=== PATIENT | female | born 1970 | race Caucasian/White ===

== ENCOUNTER 2016-07-14 07:59 | Outpatient (CLI) | payer OTHER ==
--- NOTE | 2016-07-15 13:17 | DIAGNOSTIC IMAGING REPORT ---
PROCEDURE: MG BILATERAL SCREENING W/CAD INDICATION: SCREENING TECHNIQUE: Bilateral CC and MLO digital views. COMPARISON: Mammograms 06/27/2015, 07/03/2014 and 06/29/2013. FINDINGS: Computer-aided detection applied. Progression of mildly dense breast parenchymal pattern. Focal asymmetry in the left breast posteromedially seen only on the CC view. No pleomorphic microcalcifications. IMPRESSION: 1. Left breast focal asymmetry posteromedially. Recommend lateral and spot compression views with possible ultrasound if necessary. RESULT CODE: 0- Incomplete; needs additional evaluation. A. A negative report should not delay biopsy if a dominant or clinically suspicious mass is present. 10-15% of cancers are not identified by x-ray. B. A negative report may reinforce clinical impression. C. Adenosis and dense breasts may obscure an underlying neoplasm. D. False positive reports average 6-10%. E.. A yearly screening mammogram is recommended. A reminder letter will be scheduled.
[2016-07-19] MEDS ORDERED: ZYRTEC ALLERGY10 MG PO (11:38)
[2016-07-19] MEDS ORDERED: FISH OIL1000 M1 PO (11:38)
[2016-07-19] MEDS ORDERED: MULTIPLE VITAMIN PO (11:39)
[2016-07-19] MEDS ORDERED: METFORMIN HCL500 MG PO (11:39)
== END 2016-07-14 23:00 ==
LOC: MAM SRH 07:59
DX: Z12.31 Encounter for screening mammogram for malignant neoplasm of breast (principal); R92.8 Other abnormal and inconclusive findings on diagnostic imaging of breast

== ENCOUNTER 2016-07-22 10:55 | Day surgery (SDC) | payer OTHER ==
[~2016-07-22] VITALS: Ht 165.1 cm; Wt 82.9 kg
[2016-07-22] VITALS (9 sets, daily range): BP systolic 100–116; BP diastolic 58–72
[~2016-07-22 10:55] MED LIST: FISH OIL1000 M1 PO; METFORMIN HCL500 MG PO; MULTIPLE VITAMIN PO; ZYRTEC ALLERGY10 MG PO
--- NOTE | 2016-07-22 11:41 | NUR ---
PREOP INSTRUCTIONS GIVEN TO PATIENT. QUESTIONS ANSWERED. PATIENT VERBALIZES UNDERSTANDING. CONSENT CONFIRMED. NO PREOP MEDICATIONS GIVEN. EXTREMITY MARKED BY PATIENT. PATIENT RESTING COMFORTABLY. MOM IN THE ROOM. EARL
--- NOTE | 2016-07-22 16:27 | NUR ---
PATIENT ARRIVED TO PACU AT 1622. SPONT RESP. AWAKE AND CONVERSING WITH STAFF. VITALS STABLE. R LEG WITH PRIYANKA WRAP FROM GROIN TO TOES- CLEAN, DRY AND INTACT. DENIES PAIN AND NAUSEA AT THIS TIME. PATIENT ABLE TO MOVE KNEES AND HIPS. WILL CONTINUE TO MONITOR.
[2016-07-22] MEDS ORDERED: NORCO1 TA1 PO (16:42)
--- NOTE | 2016-07-22 16:43 | Provider's Discharge Care Plan ---
Problem, Goal, Plan Problem List 1. Status post phlebectomy
--- NOTE | 2016-07-22 16:43 | Provider's Discharge Care Plan ---
Problem, Goal, Plan Problem List 1. Status post phlebectomy
--- NOTE | 2016-07-22 17:03 | NUR ---
PATIENT'S VITALS STABLE. NO BLEEING NOTED AROUND DRESSINGS. DENIES PAIN AND NAUSEA. ABLE TO MOVE HIPS AND KNEES. WILL CONTINUE TO MONITOR.
--- NOTE | 2016-07-22 17:17 | NUR ---
REPORT RECIEVED FROM [facility] AT EMD OF SHIFT-- WILL TRANSPORT WHEN ANESTHESIA DISCHARGES TO NEXT LEVEL OF CARE. PT STABLE, MOVING LEGS, NO PAIN COMPLAINTS.
--- NOTE | 2016-07-22 17:35 | NUR ---
RECEIVED PATIENT FROM PACU, REPORT RECEIVED. PATIENT PLACED ON DINAMAP FOR POST OP VS, CMS IN RLE INTACT.
--- NOTE | 2016-07-22 17:55 | NUR ---
CMS INTACT IN RLE, DRESSING DRY AND INTACT. PATIENT MEDICATED FOR PAIN WITH MORPHINE 1 MG IV.
--- NOTE | 2016-07-22 19:18 | OPERATIVE REPORT ---
DATE OF SURGERY: 07/22/2016 SURGEON: Wero Olmos MD PREOPERATIVE DIAGNOSIS: 1. Varicose veins of right lower extremity POSTOPERATIVE DIAGNOSIS: 1. Varicose veins of right lower extremity PROCEDURE PERFORMED: 1. Avulsion phlebectomy of right leg (14 punctures) ANESTHESIA: Spinal. INDICATIONS: The patient is a 45-year-old woman with symptomatic varicose veins of the right knee. SURGICAL TECHNIQUE: The patient was taken to the operating room, where a spinal anesthetic was administered and patient prepped and draped in usual sterile fashion. She underwent preoperative vein marking in the standing position with indelible markers. The patient was placed in supine position with the leg elevated. A local anesthetic of 0.5% Marcaine with epinephrine was infiltrated over the vein. Multiple punctures were made, starting distally and working proximally using an 11-blade. Avulsion of the underlying vein was performed in sequence. Near the knee, there was a more diffuse cluster of veins and this required a slightly larger incision. Once this operation was over a single 4-0 Vicryl subcuticular suture was placed there. Once the avulsion was completed up into the medial thigh, pressure was held using a sterile Paul bandage following along with the operation. This was then unwound and hemostasis was complete. Mastisol and Steri-Strips were placed at all sites and the elastic compression dressing overlying a sterile Kerlix wrap was placed and the patient was taken from the operating room with the leg elevated in supine position and with no signs of bleeding.
--- NOTE | 2016-07-22 20:00 | NUR ---
CMS INTACT IN RLE, ABLE TO MOVE LEGS BLE, REPORTS SOME NUMBNESS STILL IN COCCYX.
--- NOTE | 2016-07-22 21:15 | NUR ---
CMS INTACT TO RLE, DRESSING DRY AND INTACT, NO DRAINAGE NOTED. MEDICATED FOR PAIN WITH MORPHINE 2 MG IV WITH RELIEF.
--- NOTE | 2016-07-22 22:20 | NUR ---
CMS IN RLE INTACT, PATIENT'S DRESSING DRY AND INTACT. ABLE TO AMBULATE UP TO BATHROOM WITH NO DRAINAGE ON DRESSING, PATIENT TOLERATED WELL WITH NO DIZZINESS. VOIDED 450 ML OF URINE, PAIN WELL CONTROLLED ON IV MORPHINE. IV D/C'D, CATHETER INTACT. PATIENT GIVEN D/C INSTRUCTIONS AND RX, SHE VERBALIZES UNDERSTANDING OF INSTRUCTIONS AND WILL CALL MD WITH ANY QUESTIONS OR CONCERNS. PATIENT WHEELED OUT TO D/C VIA W/C WITH HER SIGNIFICANT OTHER.
== END 2016-07-22 22:20 | disposition home or self-care (01) ==
LOC: SDC SRH 10:55 → SCU SRH 10:56 → SDC SRH 12:00 → OR SRH 12:00 → OB SRH 21:04 → SDC SRH 22:20
PROVIDERS: Surgery
PROC: 06DP3ZZ Extraction of Right Saphenous Vein, Percutaneous Approach (ICD-10-PCS; principal; 2016-07-22 12:30)
DX: I83.891 Varicose veins of right lower extremity with other complications (principal); I83.811 Varicose veins of right lower extremity with pain

== ENCOUNTER 2016-07-26 12:54 | Outpatient (CLI) | payer OTHER ==
[~2016-07-26 12:54] MED LIST changes: +NORCO1 TA1 PO
--- NOTE | 2016-07-26 14:40 | DIAGNOSTIC IMAGING REPORT ---
PROCEDURE: MG UNILATERAL DIAG-LT W/CAD INDICATION: EVALUATE ASYMMETRY SEEN ON SCREENING TECHNIQUE: Spot compression mammographic views of the left breast in the CC and direct lateral projection. A full direct lateral left breast mammogram using CAD. The patient then went to ultrasound where cummings-scale and color Doppler sonographic imaging of the left breast was performed. COMPARISON: 07/14/2016, 06/27/2015, 07/03/2014 FINDINGS: Mammograms: There is a persistent triangular density in the medial left breast on the CC view which is different in appearance compared to the screening mammogram. It has an appearance of fibroglandular tissue. There is no corresponding abnormality on the direct lateral mammogram. Ultrasound: Normal tissue in the superior medial aspect of the left breast. No suspicious density or shadowing. An incidental 5 mm simple cyst in the 3 o'clock position adjacent to the nipple is noted. IMPRESSION: 1. Normal appearing fibroglandular tissue by mammogram and ultrasound. 2. 5 mm simple cyst of the position incidentally noted. 3. The patient can return to yearly screening mammography. Findings and recommendations were discussed with the patient. RESULT CODE: 1- Negative. A. A negative report should not delay biopsy if a dominant or clinically suspicious mass is present. 10-15% of cancers are not identified by x-ray. B. A negative report may reinforce clinical impression. C. Adenosis and dense breasts may obscure an underlying neoplasm. D. False positive reports average 6-10%. E.. A yearly screening mammogram is recommended. A reminder letter will be scheduled.
== END 2016-07-26 23:00 ==
LOC: MAM SRH 12:54
DX: Z12.31 Encounter for screening mammogram for malignant neoplasm of breast (principal)